=== PATIENT | male | born 1980 | race Native Hawaiian/Other Pacific Islander ===

== ENCOUNTER 2016-08-30 05:42 | Emergency (ER) | payer BC ==
[~2016-08-30] VITALS: Ht 177.8 cm; Wt 115.7 kg
[2016-08-30 06:33] LABS: PLATELET COUNT 269 K/uL (142-355)
[2016-08-30 06:40] LABS: POTASSIUM 3.7 mmol/L (3.6-5.2); SODIUM 133 mmol/L (136-145)
[2016-08-30 08:04] LABS: PARTIAL THROMBOPLASTIN TIME 25.9 SECONDS (24.5-33.6)
[2016-08-30] MEDS ORDERED: CONCERTA18 MG PO (08:24)
[2016-08-30 08:30] VITALS: BP 146/100; TEMP 98
== END 2016-08-30 09:08 | disposition short-term general hospital (02) ==
LOC: ED 05:42
PROVIDERS: Specialist
DX: R07.89 Other chest pain (principal); R68.89 Other general symptoms and signs; R19.7 Diarrhea, unspecified
CPT/HCPCS: 36415; 80053; 82150; 82550; 82553; 84484; 85007; 85027; 85379; 85610; 85730; 86318; 96365; 96366; 96368; 96374; 96375; 99285; J1644; J1885; J2405